=== PATIENT | female | born 1990 | race Caucasian/White ===

== ENCOUNTER 2019-08-23 19:40 | Emergency (ER) | payer OTHER ==
[~2019-08-23] VITALS: Ht 170.2 cm; Wt 86.6 kg
[~2019-08-23 19:40] MED LIST: ADVIL; CIPRO500 MG PO; PANADOL MAXIMU500 MG PO; PRILOSEC20 MG PO
[2019-08-23] MEDS ORDERED: DIALYVITE 800-1 EACH PO (20:11)
== END 2019-08-23 23:27 | disposition home or self-care (01) ==
LOC: ER 19:40
DX: O20.8 Other hemorrhage in early pregnancy (principal); O43.891 Other placental disorders, first trimester; Z34.01 Encounter for supervision of normal first pregnancy, first trimester

== ENCOUNTER → 2019-09-21 | Outpatient (CLI) | payer OTHER ==
[~2019-09-21] MED LIST changes: +DIALYVITE 800-1 EACH PO
== END | disposition home or self-care (01) ==
LOC: PRENATAL 09-20 14:00
DX: Z36.89 Encounter for other specified antenatal screening (principal); O36.80X1 Pregnancy with inconclusive fetal viability, fetus 1

== ENCOUNTER → 2019-11-03 | Outpatient (CLI) | payer OTHER | END | disposition home or self-care (01) | LOC: PRENATAL 08:30 | DX: O35.3XX1 Maternal care for (suspected) damage to fetus from viral disease in mother, fetus 1 (principal); O26.872 Cervical shortening, second trimester; O26.852 Spotting complicating pregnancy, second trimester; Z36.89 Encounter for other specified antenatal screening ==

== ENCOUNTER → 2023-01-23 | Emergency (ER) | payer OTHER ==
[~2023-01-23] VITALS: Ht 170.2 cm; Wt 104.8 kg
[~2023-01-23] MED LIST changes: +ADVIL200 M1; +CLINDAMYCI75 MG/5 M1; +KETO10TA2; +MOTRIN IB200 M1; +NORFLEX100MG; +PANADOL EXTRA500 MG
== END | disposition left against medical advice (07) ==
LOC: ER 02:44
DX: Z53.21 Procedure and treatment not carried out due to patient leaving prior to being seen by health care provider (principal)